=== PATIENT | female | born 1985 | race Caucasian/White ===

== ENCOUNTER 2017-09-09 13:31 | Inpatient (IN) | payer OTHER ==
[2017-09-09 15:37] LABS: Hematocrit 43 % (35-47); Hemoglobin 14.3 g/dl (12.0-16.0); Mean Corpuscular HGB Conc 34 g/dl (31-36); Mean Corpuscular Hemoglobin 31 pg (27-31); Mean Corpuscular Volume 91 fL (80-97); Mean Platelet Volume 9 um3 (7.4-10.4); Red Blood Count 4.67 10^6/ul (4.0-5.4); Red Cell Distribution Width 14 % (10.5-15); White Blood Count 14.4 10^3/ul (3.5-10.8)
[2017-09-09] MEDS ORDERED: OBEPIDURAL* 250 ML ONE (17:57)
[2017-09-09] MEDS ORDERED: Phenylephrine IV* 40 MCG/ML 10 ML SYRINGE IV PUSH PRN (18:22)
[2017-09-09] MEDS ORDERED: Famotidine TAB* 20 MG PO PRN (18:22)
[2017-09-09] MEDS ORDERED: Sodium Citrate/Citric Acid* 15 ML UDC PO PRN (18:22)
[2017-09-09] MEDS ORDERED: Phenylephrine IV* 40 MCG/ML 10 ML SYRINGE ONE (18:36)
[2017-09-09] MEDS: EPHEDrine (Pressors)* 50 MG/ML VIAL IV PUSH PRN ×2 (18:50→20:00)
[2017-09-10] MEDS ORDERED: Midazolam* 1 MG/ML 5 ML VIAL (5 MG) ONE (02:02)
[2017-09-10] MEDS ORDERED: fentaNYL* 50 MCG/ML 2 ML VIAL (100 MCG VIAL) ONE (02:02)
[2017-09-10] MEDS ORDERED: KETAMINE HCL* 50 MG/ML 10 ML VIAL ONE (02:02)
[2017-09-10] MEDS ORDERED: Morphine PF AMP (0.5MG/ML)* 5 MG/10 ML AMP ONE (02:02)
[2017-09-10] MEDS ORDERED: Varicella Virus Vaccine Live* 0.5 ML VIAL SUBCUT ONE (02:08)
[2017-09-10] MEDS ORDERED: Glycerin ADULT SUPP PR PRN (02:08)
[2017-09-10] MEDS ORDERED: Witch Hazel PAD* JAR TOPICAL PRN (02:08)
[2017-09-10] MEDS ORDERED: Dibucaine 1% 28.35 GM TUBE PR PRN (02:08)
[2017-09-10] MEDS ORDERED: ceFOXitin 2 GM IVPREMIX* 2 GM/50 ML BAG IVPB ONE (02:08)
[2017-09-10] MEDS ORDERED: Famotidine IV* 10 MG/ML 2 ML (20 mg) ONE (02:10)
[2017-09-10] MEDS ORDERED: ceFOXitin 2 GM IVPREMIX* 2 GM/50 ML BAG ONE (02:11)
[2017-09-10] MEDS ORDERED: fentaNYL* 50 MCG/ML 2 ML VIAL (100 MCG VIAL) IV PRN (02:16)
[2017-09-10] MEDS ORDERED: Scopolamine PATCH Remove* 1 NOTE MISC PATCH OFF PRN (02:41)
[2017-09-10] MEDS ORDERED: diPHENhydraMINE IV* 50 MG/ML 1 ml VIAL (BENADRYL) IV PRN (02:41)
[2017-09-10] MEDS ORDERED: Ketorolac INJ* 30 MG/ML 1 ML VIAL IV PRN (02:41)
[2017-09-10] MEDS ORDERED: Ondansetron INJ* 2 MG/ML VIAL IV PRN (02:41)
[2017-09-10] MEDS ORDERED: DiMENhydriNATE IV* 50 MG/ML VIAL IV PUSH PRN (02:41)
[2017-09-10] MEDS ORDERED: PROCHLORPERAZINE INJ 5 MG/ML 2 ML VIAL IV PRN (02:41)
[2017-09-10] MEDS ORDERED: oxyCODONE/Acetamin 5/325 MG* TAB PO PRN (02:41)
[2017-09-10] MEDS ORDERED: Nalbuphine* 20 MG/ML 1 ML VIAL IV PRN (02:41)
[2017-09-10] MEDS ORDERED: Naloxone* 0.4 MG/ML 1 ML VIAL IV PRN (02:41)
[2017-09-10] MEDS ORDERED: Naloxone* 2 MG in NS 0.9% 250 ML* 250 ML IV PRN (02:41)
[2017-09-10] MEDS ORDERED: OXYTOCIN* 10 UNITS/ML 1 ML VIAL ONE (02:50)
[2017-09-10] MEDS ORDERED: Phenylephrine INJ* 10 MG/ML 1 ML VIAL (10 MG) ONE (02:50)
[2017-09-10] MEDS ORDERED: Dexamethasone IV* 4 MG/ML 1 ML (4 MG) ONE (02:50)
[2017-09-10] MEDS ORDERED: Ondansetron INJ* 2 MG/ML VIAL ONE (02:50)
[2017-09-10] MEDS ORDERED: Lidocaine 2% EPI 1:200000 MPF* 20 ML VIAL ONE (02:50)
[2017-09-10] MEDS ORDERED: Lidocaine 2% PF * 5 ML VIAL ONE ×2 (02:50→03:04)
[2017-09-10] MEDS ORDERED: Scopolamine 1.5 mg* PATCH ONE (02:50)
[2017-09-10] MEDS ORDERED: EPHEDrine (Pressors)* 50 MG/ML VIAL ONE (03:03)
[2017-09-10] MEDS: Simethicone TAB* 80 MG TAB.CHEW PO SCH ×4 (08:44→22:08)
[2017-09-10] MEDS: Docusate CAP* 100 MG PO SCH ×3 (08:44→22:08)
[2017-09-10] MEDS: Ketorolac INJ* 30 MG/ML 1 ML VIAL IV PUSH SCH ×4 (08:45→22:08)
--- NOTE | 2017-09-10 13:05 | OP ---
DATE OF OPERATION: 09/10/17 - ROOM #[facility]-101 DATE OF : 89 SURGEON: Chula Calderón MD. EMERGENCY MANAGER: Dr. Lawson ANESTHESIOLOGIST: Dr. Jiménez. ANESTHESIA: Epidural. PRE-OP DIAGNOSIS: 40+2 weeks' gestation with persistent category 2 heart tracing. POST-OP DIAGNOSIS: 40+2 weeks' gestation with persistent category 2 heart tracing. PROCEDURE PERFORMED: Primary low-transverse section. ESTIMATED BLOOD LOSS: 1000 mL. URINE OUTPUT: 300 mL. IV FLUIDS: Lactated Ringer's 1700 mL . MATERIALS TO LAB: Cord blood and cord gases. INDICATIONS: This patient was a 32-year-old 1, para 0, who presented at 40+1 weeks' gestation in early labor. The patient progressed well in labor without any augmentation. She received an epidural when she was 5 cm dilated and had a continued progress from there after artificial rupture of membranes. There was meconium found on ruptured membranes. There was a very reassuring heart tracing throughout labor, but the heart rate was tachycardic for a little bit of time, which appeared to be related to a prolonged acceleration. The patient then started pushing when she was fully dilated. She pushed for at least about 90 minutes, at which point the heart tracing was found to be persistently elevated in the 180 to 200 range. There did not appear to be any significant decelerations present, however, the heart rate during pushing was not well recorded. The position was found to be left occiput posterior and despite good pushing effort, the head was not descending beyond +1 station. Considering the heart rate was staying persistently very tachycardic and the patient appeared to be remote from delivery, decision was made to proceed with a primary section. She was extensively counselled for the procedure and consent was signed. FINDINGS: The delivery was productive of a 1-imgig-86-ounce female infant with Apgars of 9 and 9. Normal fallopian tubes and ovaries. Uterus on palpation was notable for a septum at the upper midline of the fundus. The had been on the patient's right side of the uterine cavity. COMPLICATIONS: None. DESCRIPTION OF PROCEDURE: The risks, benefits, and alternatives were described to the patient and informed consent was obtained. The patient was taken to the operating room with IV running where epidural anesthesia was induced and found to be adequate. The patient was prepped and draped in the normal sterile fashion in the dorsal supine position with leftward tilt. A Pfannenstiel skin incision was made with a scalpel and this was carried down to the underlying fascia sharply. The fascia was then scored in the midline with the scalpel. The incision was extended using Fitzgerald scissors. The rectus muscles were dissected off the rectus fascia using blunt and sharp dissection. The rectus muscles were in the midline bluntly. The peritoneum was also entered bluntly. A bladder blade was placed. A bladder flap was created sharply using Metzenbaum scissors. A low transverse uterine incision was made with the scalpel. This was carried down to the amniotic cavity which was productive of very thick meconium. The incision was extended with blunt traction. The head was elevated to the level of the incision without much difficulty and delivered through the incision. With fundal pressure, the shoulders and body delivered without difficulty. The had an excellent tone and cried immediately on delivery. The cord was doubly clamped and cut. The infant was then handed to the awaiting catering server. A segment of cord was clamped off for gases, and cord blood was collected. The placenta then delivered with manual extraction. The uterus was then exteriorized and cleared of all clots and debris, and the intrauterine findings are noted above. The uterine incision was reapproximated using 0 Polysorb in a running-locked fashion. A second layer of imbricating sutures of 0 Polysorb was also placed with good hemostasis. The posterior cul-de-sac was irrigated with saline. The uterus was then returned to the abdomen, and the incision was reinspected and noted to be hemostatic. The peritoneum was closed with 3-0 Polysorb in a running fashion. The fascia was closed with 0 Polysorb in a running fashion. The subcutaneous tissues were reapproximated using 3-0 Polysorb in interrupted sutures. The skin was then closed with 4-0 Monocryl in a subcuticular stitch. Mastisol and Steri-Strips were placed over the incision which was then covered with a sterile bandage. The patient tolerated the procedure well. Sponge, lap, and needle counts were correct x2. [id number]/[facility] #: [id number] [facility]
[2017-09-11] MEDS: Ibuprofen TAB* 600 MG PO SCH ×4 (04:08→20:19)
[2017-09-11] MEDS: OBEPIDURAL* 250 ML EPIDURAL SCH ×2 (04:43→07:56)
[2017-09-11 08:39] LABS: Hematocrit 31 % (35-47); Hemoglobin 10.4 g/dl (12.0-16.0); Mean Corpuscular HGB Conc 34 g/dl (31-36); Mean Corpuscular Hemoglobin 31 pg (27-31); Mean Corpuscular Volume 92 fL (80-97); Mean Platelet Volume 8 um3 (7.4-10.4); Red Blood Count 3.37 10^6/ul (4.0-5.4); Red Cell Distribution Width 14 % (10.5-15); White Blood Count 16.5 10^3/ul (3.5-10.8)
[2017-09-11] MEDS: Simethicone TAB* 80 MG TAB.CHEW PO SCH ×4 (08:50→20:19)
[2017-09-11] MEDS: Docusate CAP* 100 MG PO SCH ×3 (08:51→20:19)
[2017-09-11] MEDS: oxyCODONE/Acetamin 5/325 MG* TAB PO PRN ×3 (08:51→20:51)
[2017-09-11] MEDS ORDERED: Ferrous Gluconate TAB* 324 MG TAB PO SCH (09:00)
[2017-09-11] MEDS ORDERED: Pneumococcal *Vac Polyvalent 0.5 ML VIAL IM ONE (09:00)
[2017-09-12] MEDS: Ibuprofen TAB* 600 MG PO SCH ×3 (06:13→21:59)
[2017-09-12] MEDS: Simethicone TAB* 80 MG TAB.CHEW PO SCH ×4 (09:19→21:58)
[2017-09-12] MEDS: Docusate CAP* 100 MG PO SCH ×3 (09:19→21:58)
[2017-09-12] MEDS: oxyCODONE/Acetamin 5/325 MG* TAB PO PRN ×2 (09:19→19:17)
--- NOTE | 2017-09-12 21:47 | PTEDU ---
Patient Name: JERSEY TAVERAS JERSEY TAVERAS selected video: Follow Me Mum: [employer] to view on 7 at 9:46:29 PM [id number]
[2017-09-13] MEDS: Ibuprofen TAB* 600 MG PO SCH ×4 (05:05→12:24)
[2017-09-13] MEDS: oxyCODONE/Acetamin 5/325 MG* TAB PO PRN ×2 (06:15→10:28)
[2017-09-13] MEDS: Simethicone TAB* 80 MG TAB.CHEW PO SCH ×2 (08:03→12:24)
[2017-09-13 08:10] VITALS: BP 124/62
--- NOTE | 2017-09-13 08:16 | PTEDU ---
Patient Name: JERSEY TAVERAS JERSEY TAVERAS selected video: Never Ever Shake a Baby to view on 09/13/2017 at 8:15:38 AM [id number]
[2017-09-13] MEDS ORDERED: Pneumococcal *Vac Polyvalent 0.5 ML VIAL IM ONE (10:00)
[2017-09-13] MEDS: Docusate CAP* 100 MG PO SCH (10:28)
[2017-09-13] MEDS ORDERED: Varicella Virus Vaccine Live* 0.5 ML VIAL SUBCUT ONE (11:00)
--- NOTE | 2017-09-13 15:35 | PN ---
L&D Outpatient: Exam Vitals - Most Recent: Vital Signs: Temp Pulse Resp BP Pulse Ox 98.6 F 89 16 124/62 92 09/13/17 07:43 09/13/17 07:43 09/13/17 10:28 09/13/17 07:43 09/10/17 12:19 Lab Values - Entire Visit: Laboratory Tests 09/09/17 09/09/17 09/11/17 15:22 15:22 08:27 WBC 14.4 H 16.5 H RBC 4.67 3.37 L Hgb 14.3 10.4 L Hct 43 31 L MCV 91 92 MCH 31 31 MCHC 34 34 RDW 14 14 Plt Count 196 141 L MPV 9 8 Neut % (Auto) 87.9 H 82.7 Lymph % (Auto) 6.8 L 12.5 L Travis % (Auto) 4.6 3.9 Eos % (Auto) 0.2 0.6 Baso % (Auto) 0.5 0.3 Absolute Neuts (auto) 12.7 H 13.6 H Absolute Lymphs (auto) 1.0 2.1 Absolute Monos (auto) 0.7 0.6 Absolute Eos (auto) 0 0.1 Absolute Basos (auto) 0.1 0 Absolute Nucleated RBC 0 0.01 Nucleated RBC % 0 0 Blood Type A Positive Antibody Screen Negative
== END 2017-09-13 13:52 | disposition home or self-care (01) | DRG 540 ==
LOC: MCHOBOUT 13:31 → MCHOB 14:25
PROVIDERS: ADMIT Obstetrics & Gynecology; ATTEND Obstetrics & Gynecology
PROC: 10907ZC Drainage of Amniotic Fluid, Therapeutic from Products of Conception, Via Natural or Artificial Opening (ICD-10-PCS; 2017-09-10)
PROC: 10D00Z1 Extraction of Products of Conception, Low, Open Approach (ICD-10-PCS; principal; 2017-09-10 02:19)
DX: O76 Abnormality in fetal heart rate and rhythm complicating labor and delivery (principal); O48.0 Post-term pregnancy; O77.0 Labor and delivery complicated by meconium in amniotic fluid; Z3A.40 40 weeks gestation of pregnancy; Z37.0 Single live birth
CPT/HCPCS: 36415; 85025; 86850; 86900; 86901; 90732; A9270-GY; J0694; J1100; J1885; J2250; J2405; J2590; J3010

== ENCOUNTER 2020-01-03 13:19 | Emergency (ER) | payer OTHER ==
--- NOTE | 2020-01-03 15:02 | ED ---
Upper Extremity Pain - HPI Summary HPI Summary: 34 year old F without PMHx arriving via private car to [facility] complains of left hand and wrist pain rated 7/10 in severity after tripping and falling onto pavement Mon 12/31 night. She reports left thumb pain, and bruising, swelling, numbness in the left hand. She denies pain to other fingers. Symptoms aggravated by nothing. Symptoms alleviated by nothing. She hasn't taken any pain medications. Medications reviewed. Allergies noted. - History of Current Complaint Chief Complaint: EDExtremityUpper Stated Complaint: FALL WRIST INJURY Time Seen by Provider: 01/03/20 14:41 Hx Obtained From: Patient Mechanism Of Injury: Other - tripping and falling onto pavement Onset/Duration: Started Days Ago - 2, Still Present Timing: Constant Severity Currently: Moderate - 7/10 Pain Location: Wrist - left, Hand - left Aggravating Factor(s): Nothing Alleviating Factor(s): Nothing Associated Signs & Symptoms: Positive: Other - left thumb pain, and bruising, swelling, numbness in the left hand - Allergies/Home Medications Allergies/Adverse Reactions: Allergies Allergy/AdvReac Type Severity Reaction Status Date / Time Tree Nuts Allergy Intermediate Swelling Verified 01/03/20 13:26 Of Face,Lips,& Throat peanuts Allergy Intermediate Swelling Uncoded 11/10/19 13:55 Of Face,Lips,& Throat Home Medications: Home Medications Albuterol HFA INHALER* [Ventolin HFA Inhaler*] 2 puff PO Q4H PRN 09/09/17 [ History Confirmed 11/10/19] Beclomethasone Dipropionate [Qvar] 1 puff PO BID 09/09/17 [History Confirmed ] Oseltamivir CAP* [Tamiflu CAP*] 75 mg PO BID #10 cap 11/10/19 [Rx] PMH/Surg Hx/FS Hx/Imm Hx Endocrine/Hematology History: Denies: Hx Diabetes Cardiovascular History: Denies: Hx Hypertension Respiratory History: Reports: Hx Asthma - on meds - Surgical History Surgery Procedure, Year, and Place: wisdom teeth Infectious Disease History: No Infectious Disease History: Denies: History Other Infectious Disease, Traveled Outside the [place] in Last 30 Days - Family History Known Family History: Positive: Cardiac Disease - Social History Alcohol Use: Occasionally Alcohol Amount: only social prior to Substance Use Type: Reports: None Hx Tobacco Use: No Smoking Status (MU): Never Smoked Tobacco Review of Systems Positive: Other - left hand and wrist pain, left thumb pain, and swelling, numbness in the left hand Positive: Bruising - left hand All Other Systems Reviewed And Are Negative: Yes Physical Exam - Summary Physical Exam Summary: General: Well appearing, no distress Cardiovascular: Skin is well perfused Pulmonary: No respiratory distress, no tachypnea Abdomen: Non-distended Skin: Warm, pink, dry MSK: L hand 2+ radial pulse. SILT. Diffuse bruising to the left wrist and hand most notable over the dorsal aspect of first MCP; anatomic snuffbox tenderness; scant ecchymosis and swelling of left fingers without any underlying tenderness Psych: Normal affect Neuro: A&Ox3 Triage Information Reviewed: Yes Vital Signs On Initial Exam: Initial Vitals Temp Pulse Resp BP Pulse Ox 99.5 F 107 16 136/93 98 01/03/20 13:22 01/03/20 13:22 01/03/20 13:22 01/03/20 13:22 01/03/20 13:22 Vital Signs Reviewed: Yes Procedures - Sedation Patient Received Moderate/Deep Sedation with Procedure: No Diagnostics - Vital Signs Vital Signs Temp Pulse Resp BP Pulse Ox 01/03/20 13:22 99.5 F 107 16 136/93 98 - Laboratory Lab Statement: Any lab studies that have been ordered have been reviewed, and results considered in the medical decision making process. - Radiology Wrist x-ray Radiology Interpretation Completed By: Radiologist - IMPRESSION: QUESTIONABLE NONDISPLACED FRACTURE OF THE SCAPHOID NECK. RECOMMEND CORRELATION WITH SITE OF PAIN AND/OR CONSIDERATION OF CROSS-SECTIONAL IMAGING. ED physician has reviewed this imaging report. Course/Dx - Course Course Of Treatment: 34 y/o F p/w L wrist/hand pain. - snuffbox tenderness, diffuse ecchymosis to distal wrist/hand and thumb. Placed in thumb spica. F/u orthopedics. - Diagnoses Provider Diagnoses: Fall, Scaphoid fracture Discharge ED - Sign-Out/Discharge Documenting (check all that apply): Patient Departure - Discharge Plan Condition: Stable Disposition: HOME Patient Education Materials: Scaphoid Fracture (ED) Referrals: Candace Costello MD [Primary Care Provider] - Triny Cam MD [Medical Doctor] - Additional Instructions: You were seen in the emergency department for wrist pain after fall. You may have a scaphoid fracture. Please keep your arm in a thumb spica splint. Follow up with orthopedics. Please follow up with your primary care doctor in next 2-3 days and return to emergency department for worsening or concerning symptoms. It was a pleasure taking care of you today. - Billing Disposition and Condition Condition: STABLE Disposition: Home - Attestation Statements Document Initiated by Ignacio: Yes Documenting Scribe: Nallely Hilario Provider For Whom Ignacio is Documenting (Include Credential): Deepti Telles MD Scribe Attestation: I, Nallely Hilario, scribed for Deepti Telles MD on 01/03/20 at 1525. Scribe Documentation Reviewed: Yes Provider Attestation: The documentation as recorded by the Nallely garcia accurately reflects the service I personally performed and the decisions made by me, Deepti Telles MD Status of Scribe Document: Viewed
[2020-01-03 15:48] VITALS: BP 131/87
== END 2020-01-03 15:47 | disposition home or self-care (01) ==
LOC: ED 13:19
DX: S62.002A Unspecified fracture of navicular [scaphoid] bone of left wrist, initial encounter for closed fracture (principal); W01.198A Fall on same level from slipping, tripping and stumbling with subsequent striking against other object, initial encounter; Y92.480 Sidewalk as the place of occurrence of the external cause; J45.909 Unspecified asthma, uncomplicated
CPT/HCPCS: 99282